=== PATIENT | female | born 1965 | race Caucasian/White ===

== ENCOUNTER → 2023-08-24 08:21 | Outpatient (REF) | payer OTHER, SELFPAY | LOC: RAD 08:21 | PROVIDERS: ATTENDING PHYSICIAN Nurse Practitioner | DX: M25.562 Pain in left knee (principal) | CPT/HCPCS: 73564 ==

== ENCOUNTER → 2024-01-18 10:32 | Outpatient (REF) | payer OTHER, SELFPAY | LOC: RAD 10:32 | PROVIDERS: ATTENDING PHYSICIAN Nurse Practitioner | DX: M54.40 Lumbago with sciatica, unspecified side (principal) | CPT/HCPCS: 72110 ==

== ENCOUNTER → 2024-02-14 15:24 | Outpatient (REF) | payer OTHER, SELFPAY | LOC: WDC 15:24 | PROVIDERS: ATTENDING PHYSICIAN Nurse Practitioner | DX: E04.1 Nontoxic single thyroid nodule (principal); Z12.31 Encounter for screening mammogram for malignant neoplasm of breast | CPT/HCPCS: 76536; 77063; 77067 ==